=== PATIENT | female | born 2005 | race Caucasian/White ===

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

== ENCOUNTER 2024-02-10 20:20 | Emergency (ER) | payer OTHER, SELFPAY ==
[2024-02-10 20:28] VITALS: BP 136/70; PULSE 95; RESP 16; TEMP 37.1; O2SAT 97; BMI 40.8
[2024-02-10] MEDS: ONDANSETRON 4 MG/2 ML INJ IV (20:55)
[2024-02-10 21:02] LABS: Add Manual Diff / Slide Review NO; Basophils Absolute Auto 100 /uL (0-100); Basophils Percent Auto 0.4 % (0-2); Eosinophils Absolute Auto 100 /uL (0-450); Eosinophils Percent Auto 0.7 % (2-4); Hematocrit 46.5 % (36-46); Hemoglobin 15.7 g/dL (12.0-16.0); Lymphocytes Absolute Auto 1700 /uL (1100-4500); Lymphocytes Percent Auto 12.3 % (25-40); Mean Corpuscular HGB Conc 33.6 % (30-36); Mean Corpuscular Volume 86.1 fL (80-100); Monocytes Absolute Auto 1100 /uL (0-900); Monocytes Percent Auto 7.9 % (3-14); Neutrophils Absolute Auto 11200 /uL (1500-7000); Neutrophils Percent Auto 78.7 % (50-75); Platelet Count 389 X10^3/uL (150-400); Red Blood Cell Count 5.41 X10^6/uL (4.0-5.2); Red Cell Distribution Width 13.4 % (11.6-14.8); White Blood Cell Count 14.2 X10^3/uL (4.5-11.0)
[2024-02-10 21:14] LABS: Alanine Aminotransferase 451 IU/L (<35); Albumin 4.1 g/dL (3.5-5.0); Albumin Globulin Ratio 1.1 (1.0-2.8); Alkaline Phosphatase 98 U/L (38-126); Aspartate Aminotransferase 296 IU/L (14-36); BUN Creatinine Ratio 10.1 (6-22); Bilirubin Total 3.2 mg/dL (0.2-1.3); Blood Urea Nitrogen 7 mg/dL (7-17); Calcium 9.5 mg/dL (8.4-10.2); Carbon Dioxide 20 mmol/L (22-32); Chloride 110 mmol/L (98-107); Estimated Glomerular Filt Rate > 60 mL/min (>60); Globulin 3.7 g/dL (1.7-4.1); Glucose 111 mg/dL (70-100); HEMOLYSIS < 15 (0-50); Lipase 68 U/L (23-300); Potassium 3.9 mmol/L (3.4-5.1); Sodium 139 mmol/L (137-145); Total Protein 7.8 g/dL (6.3-8.2)
--- NOTE | 2024-02-10 22:41 | DI.US.S_ITS ---
PROCEDURE: US ABDOMEN LIMITED INDICATIONS: elevated liver enzymes TECHNIQUE: Real-time focused scanning was performed of the abdomen, with image documentation. COMPARISON: None. FINDINGS: Liver measures 14 cm. Cholelithiasis without sonographic Styles sign. A 3 mm stone is seen at the neck. Other fundal stones are present. CBD measures 7 mm, which is the upper limit of normal. Mildly ectatic intrahepatic bile ducts. IMPRESSION: Cholelithiasis without sonographic Styles sign. Mildly ectatic biliary tree with CBD measuring up to 7 mm, mild intrahepatic prominence. If there is concern for cholestatic LFTs, consider MRCP. Dictated by: Teja Guan M.D. on 02/11/2024 at 0:21 Approved by: Teja Guan M.D. on 02/11/2024 at 0:22
[2024-02-10 22:54] VITALS: BP 117/68; PULSE 79; RESP 18; TEMP 37.4; O2SAT 97
[2024-02-11] VITALS (33 sets, daily range): BP systolic 119–154; BP diastolic 57–116; PULSE 70–110; RESP 16–18; O2SAT 94–99
--- NOTE | 2024-02-11 01:38 | PC.NURSE ---
Pt requesting something for pain. Dr Luna notified.
--- NOTE | 2024-02-11 01:39 | ED.NAVMDI ---
HPI - Nausea/Vomiting/Diarrhea <Shahida Luna MD - Last Filed: 02/15/24 07:48> General Chief complaint: Nausea/Vomiting/Diarrhea Stated complaint: back pain, nausea, vomiting, diaphram issues Time Seen by Provider: 02/10/24 22:41 Source: patient Mode of arrival: Ambulatory History of Present Illness HPI Narrative: 18-year-old woman who complains of upper abdominal pain that has been present for 24 hours. Initially was in the mid to right back heading toward her scapula is now bandlike and severe. She describes an episode approximately a week ago with similar pain that lasted for a couple of hours eventually resolved. No fevers. Pain today's been significant enough that she has had an episode of vomiting. She has got no diarrhea no constipation. No chest pain or palpitations or appreciated. No recent upper respiratory infections. Related Data Home Medications Medication Instructions Recorded Confirmed fluticasone propionate 50 1 spray intranasal DIRECTED 04/12/19 11/04/23 mcg/actuation nasal spray,suspension amitriptyline 10 mg tablet 10 mg PO DAILY 06/06/20 11/04/23 progesterone 10mg PO 06/06/20 11/04/23 albuterol sulfate 90 mcg/actuation 2 inh inhalation Q6H PRN 07/19/20 11/04/23 breath activated powder inhaler sumatriptan succinate 25 mg tablet mg PO PRN 05/08/22 11/04/23 Previous Rx's Medication Instructions Recorded fluticasone propionate 44 1 puff inhalation BID #10.6 grams 05/16/21 mcg/actuation HFA aerosol inhaler (Flovent HFA) diclofenac sodium 1 % topical gel 2 g topical BID PRN pain #100 grams 07/16/21 hydroxyzine HCl 25 mg tablet 25 mg PO TID PRN pain #20 tabs 07/16/21 lidocaine 5 % topical patch 2 patch topical DAILY PRN pain #30 07/16/21 ea clonidine HCl 0.1 mg tablet 0.1 mg PO BID Tics/Anxiety #60 tabs 10/15/23 sertraline 100 mg tablet 100 mg PO DAILY Anxiety #30 tabs 11/23/23 dextroamphetamine-amphetamine ER 10 mg PO QAM ADHD #30 caps 01/11/24 10 mg 24hr capsule,extend release (Adderall XR) dextroamphetamine-amphetamine ER 10 mg PO QAM ADHD #30 caps 01/11/24 10 mg 24hr capsule,extend release (Adderall XR) Allergies Allergy/AdvReac Type Severity Reaction Status Date / Time Penicillins Allergy Hives Verified 02/10/24 20:34 Review of Systems <Shahida Luna MD - Last Filed: 02/15/24 07:48> Review of Systems Narrative: Pertinent positive and negative findings as per HPI Patient History <Shahida Luna MD - Last Filed: 02/15/24 07:48> Medical History Asthma Tic disorder, unspecified Gender dysphoria Major depressive disorder, single episode Generalized anxiety disorder with panic attacks No significant medical problems Social History Smoking Status: Never smoker Smoking Status: Never smoker Substance Use Type: does not use Exam <Shahida Luna MD - Last Filed: 02/15/24 07:48> Initial Vital Signs Initial Vital Signs: Vital Signs Temperature 98.7 F 02/10/24 20:28 Pulse Rate 95 H 02/10/24 20:28 Respiratory Rate 16 02/10/24 20:28 Blood Pressure 136/70 02/10/24 20:28 Pulse Oximetry 97 02/10/24 20:28 Oxygen Delivery Method Room Air 02/10/24 20:28 General: Healthy appearing, in no acute distress. BMI of 41. Able to give a complete and coherent history. HEENT: Moist mucous membranes, normal sclera with reactive pupils, Respiratory: Lungs are clear to auscultation, no wheezing no rales no rhonchi. Full and symmetrical air movement Cardiac: Regular rate and rhythm no murmurs no bruits Abdomen: Soft, significant tenderness in the upper abdomen with mild guarding but no rebound. Mild tenderness in the lower abdomen without guarding or rebound, no flank pain Skin: Warm and dry, no rashes Neurologic: Grossly neurologically intact with no obvious asymmetries or abnormalities Extremities: No trauma, well perfused Psych: Cooperative, appropriate insight and affect <Lee Hanna DO - Last Filed: 02/11/24 15:07> Initial Vital Signs Initial Vital Signs: Vital Signs Temperature 98.7 F 02/10/24 20:28 Pulse Rate 95 H 02/10/24 20:28 Respiratory Rate 16 02/10/24 20:28 Blood Pressure 136/70 02/10/24 20:28 Pulse Oximetry 97 02/10/24 20:28 Oxygen Delivery Method Room Air 02/10/24 20:28 Course <Shahida Luna MD - Last Filed: 02/15/24 07:48> Orders Ordered: Discontinued Medications Hydromorphone HCl (Hydromorphone 0.5 Mg Inj) 0.5 mg IV Q15MIN PRN PRN Reason: Pain, Last Admin: 02/11/24 10:21 Dose: 0.5 mg Documented By: Admin: 02/11/24 08:21 Dose: 0.5 mg Documented By: Admin: 02/11/24 04:08 Dose: 0.5 mg Documented By: Admin: 02/11/24 02:33 Dose: 0.5 mg Documented By: Admin: 02/11/24 01:45 Dose: 0.5 mg Documented By: Sodium Chloride (Normal Saline 0.9%) 1,000 mls @ 1,000 mls/hr IV BOLUS ONE Stop: 02/11/24 02:38 Last Infusion: 02/11/24 02:48 Dose: Infused Documented By: Admin: 02/11/24 01:45 Dose: 1,000 mls/hr Documented By: Ceftriaxone Sodium 2,000 mg/ (Sodium Chloride) 100 mls @ 200 mls/hr IV NOW ONE Stop: 02/11/24 01:49 Last Infusion: 02/11/24 02:34 Dose: Infused Documented By: Admin: 02/11/24 02:05 Dose: 200 mls/hr Documented By: Metronidazole (Flagyl) 500 mg in 100 mls @ 100 mls/hr IV NOW ONE Stop: 02/11/24 14:30 Last Infusion: 02/11/24 14:51 Dose: Infused Documented By: Admin: 02/11/24 13:45 Dose: 100 mls/hr Documented By: REVA Ketorolac Tromethamine (Ketorolac 30 Mg/Ml Vial) 15 mg IV NOW ONE Stop: 02/11/24 11:43 Last Admin: 02/11/24 12:10 Dose: 15 mg Documented By: RLS Ondansetron HCl (Ondansetron 4 Mg/2 Ml Inj) 4 mg IV NOW PRN PRN Reason: Nausea And Vomiting Last Admin: 02/10/24 20:55 Dose: 4 mg Documented By: MI Ondansetron HCl (Ondansetron 4 Mg Odt) 4 mg PO NOW PRN PRN Reason: Nausea And Vomiting Last Admin: 02/11/24 03:39 Dose: 4 mg Documented By: Vital Signs Vital signs: Vital Signs - 8 hr 02/11/24 07:30 02/11/24 07:30 02/11/24 08:00 Pulse Rate 81 79 Respiratory Rate 16 Blood Pressure 136/77 Pulse Oximetry 95 97 Oxygen Delivery Method 02/11/24 08:00 02/11/24 08:30 02/11/24 08:30 Pulse Rate 76 Respiratory Rate Blood Pressure 140/83 136/66 Pulse Oximetry 97 Oxygen Delivery Method 02/11/24 09:00 02/11/24 09:00 02/11/24 09:30 Pulse Rate 77 Respiratory Rate 16 Blood Pressure 139/78 140/78 Pulse Oximetry 96 Oxygen Delivery Method 02/11/24 09:30 02/11/24 10:00 02/11/24 10:00 Pulse Rate 74 91 H Respiratory Rate 18 16 Blood Pressure 137/79 Pulse Oximetry 96 97 Oxygen Delivery Method 02/11/24 10:57 02/11/24 10:58 02/11/24 10:58 Pulse Rate 102 H 110 H Respiratory Rate Blood Pressure 149/81 H Pulse Oximetry 96 97 Oxygen Delivery Method 02/11/24 11:00 02/11/24 11:00 02/11/24 11:30 Pulse Rate 95 H 82 Respiratory Rate Blood Pressure 134/74 Pulse Oximetry 97 97 Oxygen Delivery Method 02/11/24 11:30 02/11/24 12:00 02/11/24 12:00 Pulse Rate 85 Respiratory Rate Blood Pressure 141/75 H 131/72 Pulse Oximetry 98 Oxygen Delivery Method 02/11/24 12:30 02/11/24 12:30 02/11/24 13:00 Pulse Rate 77 Respiratory Rate 16 Blood Pressure 133/76 132/75 Pulse Oximetry 97 Oxygen Delivery Method Room Air 02/11/24 13:00 02/11/24 13:30 02/11/24 13:30 Pulse Rate 82 83 Respiratory Rate Blood Pressure 131/73 Pulse Oximetry 95 96 Oxygen Delivery Method <Lee Hanna DO - Last Filed: 02/11/24 15:07> Orders Ordered: Discontinued Medications Hydromorphone HCl (Hydromorphone 0.5 Mg Inj) 0.5 mg IV Q15MIN PRN PRN Reason: Pain, Last Admin: 02/11/24 10:21 Dose: 0.5 mg Documented By: Admin: 02/11/24 08:21 Dose: 0.5 mg Documented By: Admin: 02/11/24 04:08 Dose: 0.5 mg Documented By: Admin: 02/11/24 02:33 Dose: 0.5 mg Documented By: Admin: 02/11/24 01:45 Dose: 0.5 mg Documented By: Sodium Chloride (Normal Saline 0.9%) 1,000 mls @ 1,000 mls/hr IV BOLUS ONE Stop: 02/11/24 02:38 Last Infusion: 02/11/24 02:48 Dose: Infused Documented By: Admin: 02/11/24 01:45 Dose: 1,000 mls/hr Documented By: Ceftriaxone Sodium 2,000 mg/ (Sodium Chloride) 100 mls @ 200 mls/hr IV NOW ONE Stop: 02/11/24 01:49 Last Infusion: 02/11/24 02:34 Dose: Infused Documented By: Admin: 02/11/24 02:05 Dose: 200 mls/hr Documented By: Metronidazole (Flagyl) 500 mg in 100 mls @ 100 mls/hr IV NOW ONE Stop: 02/11/24 14:30 Last Infusion: 02/11/24 14:51 Dose: Infused Documented By: Admin: 02/11/24 13:45 Dose: 100 mls/hr Documented By: REVA Ketorolac Tromethamine (Ketorolac 30 Mg/Ml Vial) 15 mg IV NOW ONE Stop: 02/11/24 11:43 Last Admin: 02/11/24 12:10 Dose: 15 mg Documented By: REVA Ondansetron HCl (Ondansetron 4 Mg/2 Ml Inj) 4 mg IV NOW PRN PRN Reason: Nausea And Vomiting Last Admin: 02/10/24 20:55 Dose: 4 mg Documented By: MI Ondansetron HCl (Ondansetron 4 Mg Odt) 4 mg PO NOW PRN PRN Reason: Nausea And Vomiting Last Admin: 02/11/24 03:39 Dose: 4 mg Documented By: Vital Signs Vital signs: Vital Signs - 8 hr 02/11/24 07:30 02/11/24 07:30 02/11/24 08:00 Pulse Rate 81 79 Respiratory Rate 16 Blood Pressure 136/77 Pulse Oximetry 95 97 Oxygen Delivery Method 02/11/24 08:00 02/11/24 08:30 02/11/24 08:30 Pulse Rate 76 Respiratory Rate Blood Pressure 140/83 136/66 Pulse Oximetry 97 Oxygen Delivery Method 02/11/24 09:00 02/11/24 09:00 02/11/24 09:30 Pulse Rate 77 Respiratory Rate 16 Blood Pressure 139/78 140/78 Pulse Oximetry 96 Oxygen Delivery Method 02/11/24 09:30 02/11/24 10:00 02/11/24 10:00 Pulse Rate 74 91 H Respiratory Rate 18 16 Blood Pressure 137/79 Pulse Oximetry 96 97 Oxygen Delivery Method 02/11/24 10:57 02/11/24 10:58 02/11/24 10:58 Pulse Rate 102 H 110 H Respiratory Rate Blood Pressure 149/81 H Pulse Oximetry 96 97 Oxygen Delivery Method 02/11/24 11:00 02/11/24 11:00 02/11/24 11:30 Pulse Rate 95 H 82 Respiratory Rate Blood Pressure 134/74 Pulse Oximetry 97 97 Oxygen Delivery Method 02/11/24 11:30 02/11/24 12:00 02/11/24 12:00 Pulse Rate 85 Respiratory Rate Blood Pressure 141/75 H 131/72 Pulse Oximetry 98 Oxygen Delivery Method 02/11/24 12:30 02/11/24 12:30 02/11/24 13:00 Pulse Rate 77 Respiratory Rate 16 Blood Pressure 133/76 132/75 Pulse Oximetry 97 Oxygen Delivery Method Room Air 02/11/24 13:00 02/11/24 13:30 02/11/24 13:30 Pulse Rate 82 83 Respiratory Rate Blood Pressure 131/73 Pulse Oximetry 95 96 Oxygen Delivery Method MDM - Nausea/Vomiting/Diarrhea <Shahida Luna MD - Last Filed: 02/15/24 07:48> Lab Data 02/10/24 20:45 02/10/24 20:45 Labs: Lab Results 02/10/24 02/11/24 Range/Units 20:45 13:59 WBC 14.2 H (4.5-11.0) X10^3/uL RBC 5.41 H (4.0-5.2) X10^6/uL Hgb 15.7 (12.0-16.0) g/dL Hct 46.5 H (36-46) % MCV 86.1 (80-100) fL MCH 29.0 (26-34) PG MCHC 33.6 (30-36) % RDW 13.4 (11.6-14.8) % Plt Count 389 (150-400) X10^3/uL Neut % (Auto) 78.7 H (50-75) % Lymph % (Auto) 12.3 L (25-40) % [place] % (Auto) 7.9 (3-14) % Eos % (Auto) 0.7 L (2-4) % Baso % (Auto) 0.4 (0-2) % Neut # (Auto) 17241 H (8928-8163) /uL Lymph # (Auto) 1700 (9261-2975) /uL [place] # (Auto) 1100 H (0-900) /uL Eos # (Auto) 100 (0-450) /uL Baso # (Auto) 100 (0-100) /uL Sodium 139 (137-145) mmol/L Potassium 3.9 (3.4-5.1) mmol/L Chloride 110 H (98-107) mmol/L Carbon Dioxide 20 L (22-32) mmol/L BUN 7 (7-17) mg/dL Creatinine 0.69 (0.52-1.04) mg/dL Estimated GFR > 60 (>60) mL/min BUN/Creatinine Ratio 10.1 (6-22) Glucose 111 H (70-100) mg/dL Lactate 0.9 (0.7-2.1) mmol/L Calcium 9.5 (8.4-10.2) mg/dL Total Bilirubin 3.2 H (0.2-1.3) mg/dL AST 296 H (14-36) IU/L ALT 451 H (<35) IU/L Alkaline Phosphatase 98 (38-126) U/L Total Protein 7.8 (6.3-8.2) g/dL Albumin 4.1 (3.5-5.0) g/dL Globulin 3.7 (1.7-4.1) g/dL Albumin/Globulin Ratio 1.1 (1.0-2.8) Lipase 68 (23-300) U/L Point of Care Testing Test Results Negative Urine Dip Bedside Urine Glucose Negative Bedside Urine Bilirubin ++ 2 Bedside Urine Ketone + 15 Urine Specific [place] 1.030 Bedside Urine Occult Blood - Negative Bedside Urine pH 6.0 Bedside Urine Protein + 30 Bedside Urine Urobilinogen - Negative Bedside Urine Nitrite - Negative Bedside Urine Leukocytes + 70 Esterase MDM Narrative Medical decision making narrative: CC: Upper abdominal pain for 24 hours Complicating co-morbidities: BMI of 41. Data collected from: patient, mother Differential considered: Gallbladder colic, acute cholecystitis, choledocholithiasis, ascending cholangitis, constipation, ulcer, pancreatitis Exam documented above, pertinent findings include: Significant epigastric and upper abdominal tenderness with guarding but no rebound. Lab Test results independently reviewed as above. Pertinent findings: CBC shows a white count at 14.2, slight hemoconcentration with H&H of 15.7 and 46.5. Platelets are appropriate Chemistries show normal renal function, LFTs are elevated including bilirubin at 3.2 AST at 296 ALT at 451 lipase is unremarkable Imaging studies independently reviewed: Preliminary ultrasound report shows multiple small gallstones with 1 appearing to be impacted in the neck. Common bile duct is slightly elevated at 0.67 mm she is mild intrahepatic dilatation no gallbladder wall thickening Consultations: Discussion with Dr. Sanchez. He did recommend MRCP which can be facilitated 1st thing this morning. Patient has had a prior MRI without complications Treatments: Fluids, ceftriaxone, Dilaudid, Zofran Re-evaluations: Discussion: 18-year-old woman with developing cholecystitis small stone stuck in the neck of the gallbladder with continued pain antibiotics have been initiated. Concern for common bile duct stone an MRCP has been ordered. We will be handed off to the morning dark for follow up. If stone is appreciated we will need to facilitate transfer to facility where ERCP is available. <Lee Hanna, - Last Filed: 02/11/24 15:07> Lab Data Attestation: I reviewed the patient's lab results. Labs: Lab Results 02/10/24 02/11/24 Range/Units 20:45 13:59 WBC 14.2 H (4.5-11.0) X10^3/uL RBC 5.41 H (4.0-5.2) X10^6/uL Hgb 15.7 (12.0-16.0) g/dL Hct 46.5 H (36-46) % MCV 86.1 (80-100) fL MCH 29.0 (26-34) PG MCHC 33.6 (30-36) % RDW 13.4 (11.6-14.8) % Plt Count 389 (150-400) X10^3/uL Neut % (Auto) 78.7 H (50-75) % Lymph % (Auto) 12.3 L (25-40) % [place] % (Auto) 7.9 (3-14) % Eos % (Auto) 0.7 L (2-4) % Baso % (Auto) 0.4 (0-2) % Neut # (Auto) 36778 H (2955-6207) /uL Lymph # (Auto) 1700 (1033-3686) /uL [place] # (Auto) 1100 H (0-900) /uL Eos # (Auto) 100 (0-450) /uL Baso # (Auto) 100 (0-100) /uL Sodium 139 (137-145) mmol/L Potassium 3.9 (3.4-5.1) mmol/L Chloride 110 H (98-107) mmol/L Carbon Dioxide 20 L (22-32) mmol/L BUN 7 (7-17) mg/dL Creatinine 0.69 (0.52-1.04) mg/dL Estimated GFR > 60 (>60) mL/min BUN/Creatinine Ratio 10.1 (6-22) Glucose 111 H (70-100) mg/dL Lactate 0.9 (0.7-2.1) mmol/L Calcium 9.5 (8.4-10.2) mg/dL Total Bilirubin 3.2 H (0.2-1.3) mg/dL AST 296 H (14-36) IU/L ALT 451 H (<35) IU/L Alkaline Phosphatase 98 (38-126) U/L Total Protein 7.8 (6.3-8.2) g/dL Albumin 4.1 (3.5-5.0) g/dL Globulin 3.7 (1.7-4.1) g/dL Albumin/Globulin Ratio 1.1 (1.0-2.8) Lipase 68 (23-300) U/L Point of Care Testing Test Results Negative Urine Dip Bedside Urine Glucose Negative Bedside Urine Bilirubin ++ 2 Bedside Urine Ketone + 15 Urine Specific [place] 1.030 Bedside Urine Occult Blood - Negative Bedside Urine pH 6.0 Bedside Urine Protein + 30 Bedside Urine Urobilinogen - Negative Bedside Urine Nitrite - Negative Bedside Urine Leukocytes + 70 Esterase Imaging Data MRCP: Radiologist's Impression: PROCEDURE: MR ABDOMEN WO/W CON INDICATIONS: MRCP, ? choledocolithiasis TECHNIQUE: Coronal HASTE, axial 2D FLASH in- and [id number]; axial breath-hold T2 FSE with fat saturation from the hepatic dome to the iliac crests. Oblique coronal thin-slice and radial thick slab HASTE through the biliary system. Dynamic axial VIBE during administration of contrast. Post-contrast coronal VIBE or 2D FLASH with fat saturation from the hepatic dome to the iliac crests. Optional diffusion weighted imaging and ADC may be performed. COMPARISON: [facility], US, US ABDOMEN LIMITED, 02/10/2024, 23:45. FINDINGS: Image quality: [id number] motion artifact Lower chest: No basal effusions. Liver: Unremarkable Gallbladder and biliary system: There is mild gallbladder distention, with cholelithiasis. Many tiny stones are present. Peribiliary enhancement is seen diffusely, with mild intrahepatic dilation. On this motion degraded evaluation, possible gallstones are seen in the CBD, which measures 7 mm (5/16 for example) Pancreas: No ductal dilation Spleen: Nonenlarged Adrenals: No discrete nodules Kidneys: No solid mass or hydronephrosis Vessels and lymph nodes: No abdominal aortic aneurysm. There are mildly enlarged upper abdominal lymph nodes, for example portal caval node measures 1.4 cm. Mildly enlarged ynes hepatis nodes are also present. Bowel and peritoneum: No bowel obstruction. Moderate fecal loading. No pathologic ascites Body wall: Unremarkable Bones: No acute or suspicious osseous finding. IMPRESSION: Mildly distended biliary system, with suspected choledocholithiasis. Diffuse mild peribiliary enhancement, possibly reactive. Differential include superimposed cholangitis. Cholelithiasis. Gallbladder is better assessed on ultrasound. Mildly enlarged upper abdominal lymph nodes, indeterminate, possibly reactive. Other findings above. Motion degraded MRI. US - abdomen: Radiologist's Impression: PROCEDURE: US ABDOMEN LIMITED INDICATIONS: elevated liver enzymes TECHNIQUE: Real-time focused scanning was performed of the abdomen, with image documentation. COMPARISON: None. FINDINGS: Liver measures 14 cm. Cholelithiasis without sonographic Styles sign. A 3 mm stone is seen at the neck. Other fundal stones are present. CBD measures 7 mm, which is the upper limit of normal. Mildly ectatic intrahepatic bile ducts. IMPRESSION: Cholelithiasis without sonographic Styles sign. Mildly ectatic biliary tree with CBD measuring up to 7 mm, mild intrahepatic prominence. If there is concern for cholestatic LFTs, consider MRCP MDM Narrative Medical decision making narrative: CC: Upper abdominal pain for 24 hours Complicating co-morbidities: BMI of 41. Data collected from: patient, mother Differential considered: Gallbladder colic, acute cholecystitis, choledocholithiasis, ascending cholangitis, constipation, ulcer, pancreatitis Exam documented above, pertinent findings include: Significant epigastric and upper abdominal tenderness with guarding but no rebound. Lab Test results independently reviewed as above. Pertinent findings: CBC shows a white count at 14.2, slight hemoconcentration with H&H of 15.7 and 46.5. Platelets are appropriate Chemistries show normal renal function, LFTs are elevated including bilirubin at 3.2 AST at 296 ALT at 451 lipase is unremarkable Imaging studies independently reviewed: Preliminary ultrasound report shows multiple small gallstones with 1 appearing to be impacted in the neck. Common bile duct is slightly elevated at 0.67 mm she is mild intrahepatic dilatation no gallbladder wall thickening Consultations: Discussion with Dr. Sanchez. He did recommend MRCP which can be facilitated 1st thing this morning. Patient has had a prior MRI without complications Treatments: Fluids, ceftriaxone, Dilaudid, Zofran Re-evaluations: Discussion: 18-year-old woman with developing cholecystitis small stone stuck in the neck of the gallbladder with continued pain antibiotics have been initiated. Concern for common bile duct stone an MRCP has been ordered. We will be handed off to the morning dark for follow up. If stone is appreciated we will need to facilitate transfer to facility where ERCP is available. Dr hanna: Received turned over. Review patient's history and physical and workup up to this point. Patient is MRCP is consistent with a choledocholithiasis. She has been receiving antibiotics. Pain has been somewhat difficult to control. I did discuss the case with on-call gastroenterology [facility] who agrees to evaluate the patient upon transfer.. Discussed the case with hospitalist at [facility] who accepts the patient for transfer. Patient was stable for transport. Discharge Plan Departure Patient Disposition: [facility] Clinical Impression: Acute cholecystitis, Choledocholithiasis Prescriptions: No Action progesterone 10mg PO amitriptyline 10 mg tablet 10 mg PO DAILY albuterol sulfate 90 mcg/actuation aerosol powdr breath activated 2 inh inhalation Q6H PRN sertraline 100 mg tablet 100 mg PO DAILY MDD 100 mg Qty: 30 2RF sumatriptan succinate 25 mg tablet PO PRN clonidine HCl 0.1 mg tablet 0.1 mg PO BID Qty: 60 2RF Hold Instructions: Home Medication placed on hold at Doctor's office dextroamphetamine-amphetamine [Adderall XR] 10 mg capsule,extended release 24hr 10 mg PO QAM Qty: 30 0RF dextroamphetamine-amphetamine [Adderall XR] 10 mg capsule,extended release 24hr 10 mg PO QAM Qty: 30 0RF Rx Instructions: Do not take past 10 am. fluticasone propionate 50 mcg/actuation spray,suspension 1 spray INTRANASAL DIRECTED Flovent HFA 44 mcg/actuation HFA aerosol inhaler 1 puff inhalation BID Qty: 10.6 0RF Rx Instructions: administer with spacer hydroxyzine HCl 25 mg tablet 25 mg PO TID PRN (Reason: pain) Qty: 20 0RF Hold Instructions: Home Medication placed on hold at Doctor's office diclofenac sodium 1 % gel 2 g topical BID PRN (Reason: pain) Qty: 100 0RF lidocaine 5 % adhesive patch,medicated 2 patch topical DAILY PRN (Reason: pain) Qty: 30 0RF Rx Instructions: leave on most painful area for up to 12 hrs Referrals: ProviderJason [Primary Care Provider] -
[2024-02-11] MEDS: HYDROMORPHONE 0.5 MG INJ IV ×5 (01:45→10:21)
[2024-02-11] MEDS: SODIUM CHLORIDE 0.9% 1,000 ML 1000 ML IV (01:45)
[2024-02-11] MEDS: cefTRIAXone 2,000 MG in SODIUM CHLORIDE 0.9% 100 ML 200 MG IV (02:05)
--- NOTE | 2024-02-11 02:38 | DI.MRI.S_ITS ---
PROCEDURE: MR ABDOMEN WO/W CON INDICATIONS: MRCP, ? choledocolithiasis TECHNIQUE: Coronal HASTE, axial 2D FLASH in- and [id number]; axial breath-hold T2 FSE with fat saturation from the hepatic dome to the iliac crests. Oblique coronal thin-slice and radial thick slab HASTE through the biliary system. Dynamic axial VIBE during administration of contrast. Post-contrast coronal VIBE or 2D FLASH with fat saturation from the hepatic dome to the iliac crests. Optional diffusion weighted imaging and ADC may be performed. COMPARISON: [facility], , US ABDOMEN LIMITED, 02/10/2024, 23:45. FINDINGS: Image quality: [id number] motion artifact Lower chest: No basal effusions. Liver: Unremarkable Gallbladder and biliary system: There is mild gallbladder distention, with cholelithiasis. Many tiny stones are present. Peribiliary enhancement is seen diffusely, with mild intrahepatic dilation. On this motion degraded evaluation, possible gallstones are seen in the CBD, which measures 7 mm (5/16 for example) Pancreas: No ductal dilation Spleen: Nonenlarged Adrenals: No discrete nodules Kidneys: No solid mass or hydronephrosis Vessels and lymph nodes: No abdominal aortic aneurysm. There are mildly enlarged upper abdominal lymph nodes, for example portal caval node measures 1.4 cm. Mildly enlarged ynes hepatis nodes are also present. Bowel and peritoneum: No bowel obstruction. Moderate fecal loading. No pathologic ascites Body wall: Unremarkable Bones: No acute or suspicious osseous finding. IMPRESSION: Mildly distended biliary system, with suspected choledocholithiasis. Diffuse mild peribiliary enhancement, possibly reactive. Differential include superimposed cholangitis. Cholelithiasis. Gallbladder is better assessed on ultrasound. Mildly enlarged upper abdominal lymph nodes, indeterminate, possibly reactive. Other findings above. Motion degraded MRI. Dictated by: Teja Guan M.D. on 02/11/2024 at 11:15 Approved by: Teja Guan M.D. on 02/11/2024 at 11:23
[2024-02-11] MEDS: ONDANSETRON 4 MG ODT PO (03:39)
[2024-02-11] MEDS: KETOROLAC 30 MG/ML VIAL 15 MG IV (12:10)
[2024-02-11] MEDS: metroNIDAZOLE 500 MG/100 ML PIGGYBACK 100 MG IV (13:45)
[2024-02-11 14:23] LABS: Lactate (Lactic Acid) 0.9 mmol/L (0.7-2.1)
== END 2024-02-11 15:59 | disposition short-term general hospital (02) ==
PROVIDERS: Emergency Medicine; Emergency Provider Emergency Medicine
DX: K80.42 Calculus of bile duct with acute cholecystitis without obstruction (principal); R79.89 Other specified abnormal findings of blood chemistry
CPT/HCPCS: 36415; 74183; 76705; 80053; 81003; 81025; 83605; 83690; 85025; 96365; 96367; 96375; 96376; 99284; 99285; A9579; J0696; J1170; J1885; J2405

== ENCOUNTER → 2025-02-16 07:16 | Outpatient (CLI) | payer OTHER, SELFPAY ==
--- NOTE | 2025-02-16 07:18 | DI.US.S_ITS ---
PROCEDURE: US ABDOMEN LIMITED INDICATIONS: Nausea TECHNIQUE: Real-time scanning was performed of the abdominal and retroperitoneal organs, with image documentation. COMPARISON: [facility], MR, MR ABDOMEN WO/W CON, 02/11/2024, 10:27. [facility], US, US ABDOMEN LIMITED, 02/10/2024, 23:45. FINDINGS: Liver: Liver is normal in size and homogeneous in echotexture. Gallbladder: Removed Biliary ducts: Intrahepatic bile ducts are non-dilated. Extrahepatic bile duct caliber measures 2 mm. Normal is 6-7 mm or less in diameter, or 10 mm or less post-cholecystectomy. Pancreas: Not well seen. Miscellaneous: No free abdominal fluid. IMPRESSION: Cholecystectomy. Otherwise, unremarkable exam. Dictated by: Sarah Masters M.D. on 02/16/2025 at 15:10 Approved by: Sarah Masters M.D. on 02/16/2025 at 15:10
== END ==
LOC: US 07:17
PROVIDERS: Referring Provider Nurse Practitioner Family; Visit Provider Nurse Practitioner Family
DX: R11.0 Nausea (principal); Z90.49 Acquired absence of other specified parts of digestive tract
CPT/HCPCS: 76705

== ENCOUNTER 2025-03-29 07:24 | Day surgery (SDC) | payer OTHER, SELFPAY ==
--- NOTE | 2025-03-29 | PATH_ITS ---
[facility] Accession Number: [id number] No. of containers..01 Tissue . 01 Material submitted: . stomach - STOMACH, ANTRUM . 01 Clinical history: . FOR H.PYLORI . 01 Diagnosis: STOMACH, ANTRUM: Gastric antral and oxyntic mucosa with no diagnostic alterations. No Helicobacter organisms identified on H/E stain. No intestinal metaplasia, dysplasia, or malignancy identified. [facility] 04/10/20251418 Local . 01 Electronically signed: . Jamie Wesley MD, Pathologist NPI- [id number] . 01 Gross description: . Received one formalin-filled container, labeled with the patient's name and antral. The specimen consists of two fragments of bush, soft tissue which range in size from 0.2 x 0.2 x 0.2 cm to 0.3 x 0.2 x 0.2 cm. All fragments are totally submitted in one cassette. ([id number]) /[facility] 04/10/20251418 Local . 01 Pathologist provided ICD-10: K21.9 . 01 CPT . 154188 Specimen Comment: A courtesy copy of this report has been sent to [facility] Performed at: [address] [address], [place], [place] [id number] MD Jamie Wesley MD Phone: [phone]
--- NOTE | 2025-03-29 06:32 | PM.HP.IH.1 ---
History of Present Illness History of Present Illness Date Patient Seen: 03/29/25 Time Patient Seen: 06:32 Chief complaint: [facility] [place] Narrative: 19yo F presents for EGD this morning to evaluate GERD. [facility] Medical History Asthma Tic disorder, unspecified Gender dysphoria Major depressive disorder, single episode Generalized anxiety disorder with panic attacks No significant medical problems Meds Home Medications and Allergies Home Medications ?Medication ?Instructions ?Recorded ?Confirmed ?Type fluticasone propionate 50 1 spray intranasal DIRECTED 04/12/19 03/12/25 History mcg/actuation nasal spray,suspension progesterone 10mg PO 06/06/20 03/12/25 History albuterol sulfate 90 mcg/actuation 2 inh inhalation Q6H PRN 07/19/20 11/04/23 History breath activated powder inhaler fluticasone propionate 44 1 puff inhalation BID #10.6 grams 05/16/21 03/12/25 Rx mcg/actuation HFA aerosol inhaler (Flovent HFA) dextroamphetamine-amphetamine ER 15 mg PO QAM ADHD #30 caps 03/07/25 03/12/25 Rx 15 mg 24hr capsule,extend release (Adderall XR) sertraline 100 mg tablet 100 mg PO DAILY Anxiety #30 tabs 03/07/25 03/12/25 Rx Allergies Allergy/AdvReac Type Severity Reaction Status Date / Time Penicillins Allergy Hives Verified 03/12/25 13:55 Exam Narrative Exam Narrative: Const General: comfortable Orientation: alert and oriented x3 Resp Effort & Inspection: normal respiratory effort and able to speak in complete sentences Cardio Rate: regular rate GI Palpation: soft (NT) Extrem General: no pedal edema and no calf tenderness Assessment & Plan Assessment and plan (1) GERD (gastroesophageal reflux disease): Qualifiers: Esophagitis presence: esophagitis presence not specified Qualified Code(s): K21.9 - Gastro-esophageal reflux disease without esophagitis Status: Acute Plan Plan EGD/biopsy to evaluate for hiatal hernia, esophagus, Garcia's, dysplasia, H pylori. The risks, benefits and options regarding the procedure were explained to the patient in detail. Risk discussion included but not limited to: bleeding, perforation. The patient was encouraged to ask questions and they were answered to their satisfaction. The patient understands and is agreeable to proceed. Time-Based Coding :: [TOTAL MINUTES] spent with patient and on the chart (including review of chart, obtaining history, exam, reviewing outside data, placing orders, documenting exam and treatment plan, and counseling patient) on [DATE]. PROFEE Manager Nicu Document charge(s): Yes Charge Codes Inpatient/observation care including admit and discharge same day: [id number]
[2025-03-29 08:05] VITALS: BP 119/71; PULSE 92; RESP 16; TEMP 36.7; O2SAT 96
[2025-03-29] MEDS: LACTATED RINGERS 1,000 ML 84 ML IV (08:10)
--- NOTE | 2025-03-29 09:28 | PM.OP.EGD ---
Operative Date/Time/Diagnoses Date of procedure: 03/29/25 Time of procedure: 09:44 Pre-op diagnosis: GERD, n/v Post-op diagnosis: other (Gastritis with evidence of recent bleeding) Procedure & Clinicians Study performed: EGD with biopsy Same procedure(s) as scheduled: Yes Indications: 19yo F, n/v, GERD Surgeon: Kishor Connolly Anesthesia Type: MAC +/- Procedure Notes SCOAP/Timeout: Performed Procedure in detail: EGD Informed consent was obtained. The procedure, its risks, benefits, and alternatives were discussed. Patient understood and agreed to proceed. The patient was placed in the left lateral decubitus position with head elevated. Sedation given per anesthesia. The video endoscope was inserted into the oropharynx and guided under direct vision into the esophagus, stomach, and duodenum which were carefully examined. The scope was retroflexed to examine the hiatus and gastroesophageal junction. Antral biopsies were obtained for Helicobacter pylori. The patient tolerated the procedure very well. There were no apparent complications. Significant EGD findings: Z-line noted at: 36cm Moderate gastritis extending from antrum to gastric body. Small clots at greater curvature, evidence of recent bleeding, biopsied, H pylori possible No ulcer in esophagus, stomach or duodenum Duodenum normal No esophagitis No hiatal hernia Findings: gastritis Specimen(s): other (antral biopsies) Estimated Blood Loss: 5 Complications: none Impression: Moderate gastritis with bleeding PPI BID Consider H pylori treatment if no improvement in PPI Post-procedure Recommendations: Will call with biopsy results Plan for aftercare: PACU then home Follow up: as needed Disposition: PACU
[2025-03-29 09:40] VITALS: BP 111/58; PULSE 90; RESP 14; TEMP 36.2; O2SAT 96
[2025-03-29 09:46] VITALS: BP 109/58; PULSE 86; RESP 15; TEMP 36.2; O2SAT 98
[2025-03-29 09:50] VITALS: BP 120/75; PULSE 77; RESP 15; TEMP 36.2; O2SAT 97
== END 2025-03-29 10:03 | disposition home or self-care (01) ==
PROVIDERS: Referring Provider Surgery; Visit Provider Surgery
PROC: 0DJ08ZZ Inspection of Upper Intestinal Tract, Via Natural or Artificial Opening Endoscopic (ICD-10-PCS; CPT 43239; principal; 2025-03-29 08:45)
DX: K29.71 Gastritis, unspecified, with bleeding (principal); K21.9 Gastro-esophageal reflux disease without esophagitis; F32.9 Major depressive disorder, single episode, unspecified; F41.1 Generalized anxiety disorder; F41.0 Panic disorder [episodic paroxysmal anxiety]
CPT/HCPCS: 43239; J2704; J7120